=== PATIENT | male | born 1940 | race Caucasian/White ===

== ENCOUNTER 2019-09-18 15:21 | Outpatient (CLI) | payer MEDICARE ==
--- NOTE | 2019-09-18 17:45 | CT ---
CT PULMONARY LUNG SCAN/CT CHEST WITHOUT CONTRAST: History: Lung screening. Chronic smoker for 56 years. Difficulty breathing and COPD. Comparison: CT abdomen/pelvis 09-04-07 Technique: Multiple contiguous axial images were obtained in a CT of the chest without contrast for l ow-dose cancer screening protocol. Sagittal and coronal reformats were performed. FINDINGS: Bullous emphysematous changes are seen which are greater in the lung apices. No pneumothorax or pleur al effusion are seen. Atelectasis is seen in the left lung base and in the lingula. A peripheral nodu lar opacity on Image 59 of 168 in the lingula likely represents scarring rather than a true pulmonary nodule. No suspicious pulmonary nodules are identified. A calcified granuloma is seen in the right u pper lobe. The heart is normal in size without focal cardiac abnormality. Calcifications are seen in the coronar y arteries and aorta. There is a stable 2.8 cm right adrenal mass. The other visualized subdiaphragmatic structures are unr emarkable. Degenerative changes in the spine. The chest wall soft tissues are unremarkable. IMPRESSION: 1. LUNG RADS category 3 - benign findings. 2. Stable right adrenal mass. This most likely represents a fat containing adrenal adenoma. POS: EAA
== END 2019-09-18 15:22 | disposition home or self-care (01) ==
LOC: BICCT 15:21
PROVIDERS: ATTEND Internal Medicine
DX: Z12.2 Encounter for screening for malignant neoplasm of respiratory organs (principal); J44.9 Chronic obstructive pulmonary disease, unspecified; R06.00 Dyspnea, unspecified; F17.210 Nicotine dependence, cigarettes, uncomplicated
CPT/HCPCS: G0297

== ENCOUNTER 2020-04-24 09:51 | Outpatient (CLI) | payer MEDICARE ==
--- NOTE | 2020-04-24 10:55 | CT ---
CT CHEST WITHOUT CONTRAST: TECHNIQUE: Multiple axial tomograms were obtained following a low-dose screening protocol. INDICATION: Nicotine use. Long history of smoking. COMPARISON: Comparison is made to CT chest 09/18/2019. FINDINGS: There are chronic lung parenchymal changes. Mild interstitial thickening in the periphery. There ar e bullous changes bilaterally with a large bulla in the left apex. Pleural-based bullous changes are seen bilaterally along the lateral pleural surfaces of the upper lobes. Numerous small bullae are s een medially along the mediastinal surface. Small nodular density in the left upper lobe peripherally, axial image 64 is stable measuring approxi mately 5 mm. Small nodule in the lingula laterally image 132 axial measuring 5 mm is stable. No evidence of infiltrate or effusion. Small calcified granuloma in the anterior right upper lobe is again noted. Stranding in the lung bases, more pronounced on the left. Mediastinum unremarkable wi th tiny calcified lymph nodes and nonspecific noncalcified nodes. Images through the upper abdomen again show the right adrenal adenoma. IMPRESSION: Lung RADS 2. Recommend continued annual low-dose screening chest. POS: [facility]W
== END 2020-04-24 09:52 | disposition home or self-care (01) ==
LOC: BICCT 09:51
PROVIDERS: ATTEND Internal Medicine
DX: Z12.2 Encounter for screening for malignant neoplasm of respiratory organs (principal); F17.210 Nicotine dependence, cigarettes, uncomplicated
CPT/HCPCS: G0297

== ENCOUNTER 2025-02-25 15:28 | Outpatient (CLI) | payer MEDICARE | END 2025-02-25 15:29 | disposition home or self-care (01) | LOC: SCSRAD 15:28 | PROVIDERS: ATTEND Family Medicine | DX: M54.50 Low back pain, unspecified (principal); M47.816 Spondylosis without myelopathy or radiculopathy, lumbar region; M47.817 Spondylosis without myelopathy or radiculopathy, lumbosacral region; M43.9 Deforming dorsopathy, unspecified | CPT/HCPCS: 72100 ==